=== PATIENT | female | born 1945 | race Caucasian/White ===

== ENCOUNTER 2018-03-07 07:31 | Inpatient (IN) | payer MEDICARE, OTHER ==
[2018-03-04 11:41] LABS: BASOPHILS # (AUTO) 0.1 X10'3 (0-0.2); BASOPHILS % (AUTO) 1.3 % (0-1); EOSINOPHILS # (AUTO) 0.2 X10'3 (0-0.9); LYMPHOCYTES # (AUTO) 1.3 X10'3 (1.1-4.8); MEAN CORPUSCULAR HGB CONC 35.3 % (33.0-36.5); MEAN CORPUSCULAR VOLUME 93.5 FL (78-98); MEAN PLATELET VOLUME 8.6 FL (7.4-10.4); MONOCYTES # (AUTO) 0.5 X10'3 (0-0.9); MONOCYTES % (AUTO) 8.6 % (2-12); NEUTROPHILS # (AUTO) 3.6 X10'3 (1.8-7.7); NEUTROPHILS % (AUTO) 63.1 % (42-75); PRE OP HEMATOCRIT 38.9 % (35.0-45.0); PRE OP HEMOGLOBIN 13.7 g/dL (12.0-16.0); PRE OP PLATELET COUNT 213 X10'3 (140-440); RED BLOOD COUNT 4.16 X10'6 (4.20-5.60); RED CELL DISTRIBUTION WIDTH 13.2 % (11.5-14.5)
[2018-03-04 11:53] LABS: CLARITY,URINE CLOUDY (Clear); COLOR,URINE YELLOW (Yellow); GLUCOSE, URINE NEGATIVE (Neg); KETONES,URINE NEGATIVE (Neg); LEUKOCYTE ESTERASE ,URINE SMALL (Neg); NITRITES, URINE POSITIVE (Neg); OCCULT BLOOD,URINE TRACE-INTACT (Neg); PROTEIN,URINE NEGATIVE (Neg); UROBILINOGEN,URINE 0.2 E.U/dL (0.2-1.0)
[2018-03-04 11:55] LABS: UA COLLECTION TYPE CLN CATCH MIDSTREAM
[2018-03-04 11:58] LABS: ALBUMIN 3.5 G/DL (3.4-5.0); ALBUMIN/GLOBULIN RATIO 0.9 (1.1-1.5); ALKALINE PHOSPHATASE 81 IU/L (46-116); BLOOD UREA NITROGEN 19 MG/DL (7-18); CALCIUM 9.1 MG/DL (8.5-10.1); CHLORIDE 105 MMOL/L (99-107); CREATININE 0.95 MG/DL (0.40-0.90); PRE OP ALT 19 U/L (30-65); PRE OP ANION GAP 7 (8-16); PRE OP AST 11 U/L (10-37); PRE OP BILIRUB, TOTAL 0.5 MG/DL (0.0-1.0); PRE OP GLUCOSE 96 MG/DL (70-104); PRE OP SODIUM 141 MMOL/L (135-145); TOTAL CARBON DIOXIDE 28.7 MMOL/L (24-32); TOTAL PROTEIN 7.2 G/DL (6.4-8.2); eGFR 58 ML/MIN
[2018-03-04 12:05] LABS: BACTERIA,URINE 4+ /HPF (Neg); RBC,URINE 0-2 /HPF (0-2)
[2018-03-04 12:07] LABS: SQUAMOUS EPITHELIAL CELL,UR MODERATE /LPF (FEW)
[~2018-03-07] VITALS: Ht 160 cm; Wt 91.1 kg
[2018-03-07] VITALS (23 sets, daily range): BP systolic 90–180; BP diastolic 46–95
[~2018-03-07 07:31] MED LIST: AMLO10TA13 PO; CARV-50 PO; DOCUMENT DATE & TIME OF BETA-BLOCKER PO ONE; IBUP-1986 PO; INDA2.5T5 PO; LEVO50TA8 PO; LOSA50TA37 PO; MORPHINE 2MG in 2ml NS syringe IV PRN; acetaminophen 325mg tablet PO ONE; acetaminophen 325mg tablet PO PRN; bisacodyl 10mg suppository rectal RC PRN; ceFAZolin 2gm in dextrose, iso 100 ML IV ONE; celeCOXIB 100mg capsule PO ONE; diphenhydrAMINE 25mg capsule PO PRN; famotidine 20mg tablet PO ONE; gabapentin 300mg capsule PO ONE; magnesium hydroxide 30ml (MOM) UD suspension PO PRN; metoclopramide 5 mg/ml inj IV ONE; oxyCODONE SR 10mg (sust. release) tab PO ONE; ringers solution, lacted 1,000 ML IV SCH; tranexamic acid inj. 1,000 MG in normal saline 100ml IV soln 90 ML IV ONE; vancomycin inj 1,500 MG in normal saline 300ml IV soln IV ONE
[2018-03-07] MEDS: losartan 50mg tablet PO SCH ×2 (08:00→21:13)
[2018-03-07] MEDS: multivitamins, therapeutics tablet PO SCH (08:00)
[2018-03-07] MEDS: celeCOXIB 100mg capsule PO SCH ×2 (08:00→21:14)
[2018-03-07] MEDS ORDERED: cefazolin/dext.iso 2gm/50ml 50 ML IV SCH (08:00)
[2018-03-07] MEDS: oxyCODONE/APAP 10/325mg tablet PO SCH ×4 (08:00→21:13)
[2018-03-07] MEDS: amLODIPine 5mg tablet PO SCH (08:00)
[2018-03-07] MEDS: carVEDilol 12.5mg tablet PO SCH ×2 (08:00→21:14)
[2018-03-07] MEDS: HYDROchlorothiazide 25mg tablet PO SCH (08:00)
[2018-03-07] MEDS: ascorbic acid 500mg tablet PO SCH ×2 (08:00→21:14)
[2018-03-07] MEDS: gabapentin 300mg capsule PO SCH ×3 (08:00→21:14)
[2018-03-07] MEDS: aspirin 325mg tablet PO SCH (08:30)
[2018-03-07] MEDS ORDERED: epiNEPHrine 1 mg/ml inj ONE (09:00)
[2018-03-07] MEDS ORDERED: ROPIVAcaine 0.5% (5mg/ml) 30ml vial ONE (09:00)
[2018-03-07] MEDS ORDERED: cloNIDine hcl/PF 100mcg/ml inj ONE (09:00)
[2018-03-07] MEDS ORDERED: vancomycin 1,000mg inj ONE (09:00)
[2018-03-07] MEDS ORDERED: ketorolac trometh. 30mg/ml inj. ONE (09:00)
[2018-03-07] MEDS ORDERED: BUPIVAcaine/dex-water/PF 7.5 mg/ml 2ml ampul ONE (10:05)
[2018-03-07] MEDS ORDERED: morphine /PF 1mg/ml 10ml inj. ONE (10:06)
[2018-03-07] MEDS ORDERED: MIDAZolam 5mg/5ml vial ONE (10:06)
[2018-03-07] MEDS ORDERED: propofol inj 20 ML IV ONE ×2 (10:37)
[2018-03-07] MEDS ORDERED: dexamethasone sod phosphate 4mg/ml inj. ONE (11:28)
[2018-03-07] MEDS ORDERED: BUPIVAcaine/PF 2.5 mg/ml (0.25%) 30ml vial ONE (11:28)
[2018-03-07] MEDS ORDERED: naloxone 2mg/2ml inj 1.8 MG in normal saline 500ml IV soln 500 ML IV PRN (11:49)
[2018-03-07] MEDS ORDERED: ringers solution, lacted 1,000 ML IV SCH (11:49)
[2018-03-07] MEDS ORDERED: ondansetron/PF 4mg/2ml inj IV PRN ×2 (11:50)
[2018-03-07] MEDS ORDERED: morphine 4 MG/ML inj SYRINge IV PRN ×2 (11:50)
[2018-03-07] MEDS ORDERED: proCHLORperazine 10 MG/2 ml inj IV PRN ×2 (11:50→18:40)
[2018-03-07] MEDS ORDERED: diphenhydrAMINE 50 mg/ml inj IV PRN (11:50)
[2018-03-07] MEDS ORDERED: acetaminophen 1,000mg/100ml IV 100 ML IV PRN (11:50)
[2018-03-07] MEDS ORDERED: meperidine/PF 50mg/ml syringe IV PRN ×3 (11:50)
[2018-03-07] MEDS: potassium cl 20mEq in 1/2 NS 1,000 ML IV SCH ×3 (14:43→23:04)
[2018-03-07] MEDS: ondansetron/PF 4mg/2ml inj IV PRN (14:43)
[2018-03-07] MEDS: ceFAZolin 2gm in dextrose, iso 100 ML IV SCH (16:48)
[2018-03-07] MEDS: sennosides 8.6mg tablet PO SCH (21:13)
[2018-03-08] MEDS: ceFAZolin 2gm in dextrose, iso 100 ML IV SCH (00:19)
[2018-03-08] MEDS: oxyCODONE/APAP 10/325mg tablet PO SCH ×6 (00:19→20:09)
[2018-03-08 02:00] VITALS: BP 124/61
[2018-03-08 05:00] VITALS: BP 135/61
[2018-03-08 07:32] LABS: BASOPHILS % (AUTO) 0.4 % (0-1); EOSINOPHILS # (AUTO) 0.1 X10'3 (0-0.9); EOSINOPHILS % (AUTO) 1.6 % (0-6); HEMATOCRIT 32.4 % (35.0-45.0); HEMOGLOBIN 11.2 g/dl (12.0-16.0); LYMPHOCYTES # (AUTO) 0.8 X10'3 (1.1-4.8); LYMPHOCYTES % (AUTO) 8.8 % (21-51); MEAN CORPUSCULAR HEMOGLOBIN 32.5 PG (27.0-31.0); MEAN CORPUSCULAR HGB CONC 34.5 % (33.0-36.5); MEAN CORPUSCULAR VOLUME 94.1 FL (78-98); MEAN PLATELET VOLUME 8.7 FL (7.4-10.4); MONOCYTES # (AUTO) 0.6 X10'3 (0-0.9); MONOCYTES % (AUTO) 7.2 % (2-12); PLATELET COUNT 179 X10'3 (140-440); RED BLOOD COUNT 3.44 X10'6 (4.20-5.60); RED CELL DISTRIBUTION WIDTH 13.3 % (11.5-14.5); WHITE BLOOD COUNT 8.5 X10'3 (4.5-11.0)
[2018-03-08 07:44] LABS: ANION GAP 8 (8-16); CHLORIDE 104 MMOL/L (99-107); SODIUM 137 MMOL/L (135-145); TOTAL CARBON DIOXIDE 24.6 MMOL/L (24-32)
[2018-03-08 07:46] LABS: POTASSIUM 4.8 MMOL/L (3.5-5.1)
[2018-03-08] MEDS: carVEDilol 12.5mg tablet PO SCH ×2 (08:00→20:08)
[2018-03-08] MEDS: levoTHYROXINE 25mcg tablet PO SCH (08:03)
[2018-03-08] MEDS: gabapentin 300mg capsule PO SCH ×3 (08:03→20:08)
[2018-03-08] MEDS: multivitamins, therapeutics tablet PO SCH (08:03)
[2018-03-08] MEDS: aspirin 325mg tablet PO SCH (08:03)
[2018-03-08] MEDS: celeCOXIB 100mg capsule PO SCH ×2 (08:04→20:08)
[2018-03-08] MEDS: losartan 50mg tablet PO SCH ×2 (08:04→20:08)
[2018-03-08] MEDS: amLODIPine 5mg tablet PO SCH (08:04)
[2018-03-08] MEDS: HYDROchlorothiazide 25mg tablet PO SCH (08:05)
[2018-03-08] MEDS: ascorbic acid 500mg tablet PO SCH ×2 (08:05→20:08)
[2018-03-08 10:00] VITALS: BP 108/40
[2018-03-08 14:00] VITALS: BP 106/41
[2018-03-08 18:00] VITALS: BP 119/42
[2018-03-08] MEDS: sennosides 8.6mg tablet PO SCH (20:08)
[2018-03-08] MEDS: oxyCODONE/APAP 10/325mg tablet PO PRN (21:37)
[2018-03-08 22:10] VITALS: BP 139/57
[2018-03-09] MEDS: oxyCODONE/APAP 10/325mg tablet PO SCH ×7 (00:03→23:58)
[2018-03-09 05:00] VITALS: BP 100/49
[2018-03-09] MEDS: oxyCODONE/APAP 10/325mg tablet PO PRN (05:34)
[2018-03-09 06:12] LABS: BASOPHILS # (AUTO) 0.1 X10'3 (0-0.2); EOSINOPHILS # (AUTO) 0.2 X10'3 (0-0.9); EOSINOPHILS % (AUTO) 2.6 % (0-6); HEMATOCRIT 29.3 % (35.0-45.0); HEMOGLOBIN 9.9 g/dl (12.0-16.0); LYMPHOCYTES # (AUTO) 1.2 X10'3 (1.1-4.8); LYMPHOCYTES % (AUTO) 18.3 % (21-51); MEAN CORPUSCULAR HEMOGLOBIN 32.1 PG (27.0-31.0); MEAN CORPUSCULAR HGB CONC 33.9 % (33.0-36.5); MEAN CORPUSCULAR VOLUME 94.6 FL (78-98); MEAN PLATELET VOLUME 8.3 FL (7.4-10.4); MONOCYTES # (AUTO) 0.9 X10'3 (0-0.9); MONOCYTES % (AUTO) 13.3 % (2-12); NEUTROPHILS # (AUTO) 4.3 X10'3 (1.8-7.7); NEUTROPHILS % (AUTO) 64.8 % (42-75); PLATELET COUNT 153 X10'3 (140-440); RED BLOOD COUNT 3.09 X10'6 (4.20-5.60); RED CELL DISTRIBUTION WIDTH 13.3 % (11.5-14.5); WHITE BLOOD COUNT 6.7 X10'3 (4.5-11.0)
[2018-03-09] MEDS: amLODIPine 5mg tablet PO SCH (08:00)
[2018-03-09] MEDS: HYDROchlorothiazide 25mg tablet PO SCH (08:00)
[2018-03-09] MEDS: carVEDilol 12.5mg tablet PO SCH ×2 (08:00→20:09)
[2018-03-09] MEDS: losartan 50mg tablet PO SCH ×2 (08:00→20:09)
[2018-03-09] MEDS: gabapentin 300mg capsule PO SCH ×3 (08:13→20:09)
[2018-03-09] MEDS: celeCOXIB 100mg capsule PO SCH ×2 (08:13→20:09)
[2018-03-09] MEDS: ascorbic acid 500mg tablet PO SCH ×2 (08:13→20:09)
[2018-03-09] MEDS: multivitamins, therapeutics tablet PO SCH (08:13)
[2018-03-09] MEDS: levoTHYROXINE 25mcg tablet PO SCH (08:13)
[2018-03-09] MEDS: aspirin 325mg tablet PO SCH (08:14)
[2018-03-09 10:00] VITALS: BP 108/48
[2018-03-09] MEDS: ondansetron/PF 4mg/2ml inj IV PRN (16:32)
[2018-03-09 18:00] VITALS: BP 129/43
[2018-03-09] MEDS: sennosides 8.6mg tablet PO SCH (20:09)
[2018-03-09 22:48] VITALS: BP 149/67
[2018-03-10] MEDS: oxyCODONE/APAP 10/325mg tablet PO SCH ×4 (04:04→16:04)
[2018-03-10 05:00] VITALS: BP 130/53
[2018-03-10 06:51] VITALS: BP 201/116
[2018-03-10 07:20] LABS: BASOPHILS # (AUTO) 0.1 X10'3 (0-0.2); EOSINOPHILS # (AUTO) 0.3 X10'3 (0-0.9); EOSINOPHILS % (AUTO) 4.3 % (0-6); HEMATOCRIT 29.2 % (35.0-45.0); HEMOGLOBIN 9.9 g/dl (12.0-16.0); LYMPHOCYTES # (AUTO) 1.3 X10'3 (1.1-4.8); LYMPHOCYTES % (AUTO) 20.5 % (21-51); MEAN CORPUSCULAR HEMOGLOBIN 32.2 PG (27.0-31.0); MEAN CORPUSCULAR HGB CONC 33.8 % (33.0-36.5); MEAN CORPUSCULAR VOLUME 95.3 FL (78-98); MONOCYTES # (AUTO) 0.7 X10'3 (0-0.9); MONOCYTES % (AUTO) 10.7 % (2-12); NEUTROPHILS # (AUTO) 3.9 X10'3 (1.8-7.7); NEUTROPHILS % (AUTO) 63.5 % (42-75); PLATELET COUNT 158 X10'3 (140-440); RED BLOOD COUNT 3.07 X10'6 (4.20-5.60); RED CELL DISTRIBUTION WIDTH 13.7 % (11.5-14.5); WHITE BLOOD COUNT 6.2 X10'3 (4.5-11.0)
[2018-03-10] MEDS: HYDROchlorothiazide 25mg tablet PO SCH (08:00)
[2018-03-10] MEDS: losartan 50mg tablet PO SCH (08:00)
[2018-03-10] MEDS: amLODIPine 5mg tablet PO SCH (08:00)
[2018-03-10] MEDS: carVEDilol 12.5mg tablet PO SCH (08:00)
[2018-03-10] MEDS: multivitamins, therapeutics tablet PO SCH (08:56)
[2018-03-10] MEDS: levoTHYROXINE 25mcg tablet PO SCH (08:56)
[2018-03-10] MEDS: celeCOXIB 100mg capsule PO SCH (08:56)
[2018-03-10] MEDS: gabapentin 300mg capsule PO SCH ×2 (08:56→13:01)
[2018-03-10] MEDS: ascorbic acid 500mg tablet PO SCH (08:56)
[2018-03-10] MEDS: aspirin 325mg tablet PO SCH (08:57)
[2018-03-10 10:00] VITALS: BP 116/68
== END 2018-03-10 16:30 | disposition home or self-care (01) | DRG 470 ==
LOC: PAS IN 07:31 → EDSTATUS 10:30 → ORTHO 4S 14:26
PROVIDERS: ADMIT Orthopaedic Surgery; ATTEND Orthopaedic Surgery
PROC: 3E0T3BZ Introduction of Anesthetic Agent into Peripheral Nerves and Plexi, Percutaneous Approach (ICD-10-PCS; 2018-03-07)
PROC: 0SRC0J9 Replacement of Right Knee Joint with Synthetic Substitute, Cemented, Open Approach (ICD-10-PCS; principal; 2018-03-07 10:00)
DX: M17.11 Unilateral primary osteoarthritis, right knee (principal); D62 Acute posthemorrhagic anemia; S82.144 Nondisplaced bicondylar fracture of right tibia; E03.9 Hypothyroidism, unspecified; I10 Essential (primary) hypertension; Z79.899 Other long term (current) drug therapy; X58.XXXA Exposure to other specified factors, initial encounter; Y93.89 Activity, other specified; Y92.89 Other specified places as the place of occurrence of the external cause; Y99.8 Other external cause status
CPT/HCPCS: 36415; 71046; 73560; 80051; 80053; 81001; 85025; 85610; 85730; 86885; 86900; 86901; 87070; 87077; 87088; 87186; 97110; 97116; 97161; 97530; A6455; A7000; C1713; C1758; C1776; J0171; J0690; J0735; J0780; J1100; J1885; J2250; J2274; J2405; J2704; J2765; J2795; J3370; J3490; J7030; J7120